=== PATIENT | female | born 1990 | race Caucasian/White ===

== ENCOUNTER 2017-08-14 08:07 | Emergency (ER) | payer OTHER ==
[~2017-08-14] VITALS: Ht 165.1 cm; Wt 34.3 kg
[2017-08-14 09:13] LABS: HEMATOCRIT 43.3 % (36.0-46.0); MCH 31.6 PG (29.0-34.0); MCHC 34.4 G/DL (30.0-36.0); MCV 91.7 FL (83-99); MEAN PLAT.VOLUME 10.9 uM^3 (9.5-12.4); PLATELET COUNT 267 K/uL (156-360); RBC DIS.WIDTH-CV 12.8 % (11.8-14.6); RBC DIS.WIDTH-SD 42.9 % (39-53); RED BLOOD COUNT 4.72 M/uL (3.80-5.20); WHITE BLOOD COUNT 13.2 K/uL (4.1-10.2)
[2017-08-14 09:26] LABS: CHLORIDE 108 mEq/L (99-109); POTASSIUM 4.1 mEq/L (3.7-5.4); SODIUM 145 mEq/L (136-147)
[2017-08-14 09:27] LABS: GLUCOSE 83 mg/dL (70-99)
[2017-08-14 09:29] LABS: ANION GAP 9 MEQ/L (2-14)
[2017-08-14 09:31] LABS: GFR ESTIMATE (CALCULATED) > 59 mL/min/; SERUM ETHYL ALCOHOL 217 mg/dL
[2017-08-14 09:32] LABS: UREA NITROGEN (BUN) 16 mg/dL (9-23)
[2017-08-14 09:41] LABS: QUANTITATIVE HCG < 4.0 MIU/ML
[2017-08-14 16:02] VITALS: BP 106/71
== END 2017-08-14 16:05 | disposition home or self-care (01) ==
LOC: TRA 08:07 → EME 08:07 → TRA 16:05
PROVIDERS: Nurse Practitioner Family
DX: S00.81XA Abrasion of other part of head, initial encounter (principal); R10.817 Generalized abdominal tenderness; M25.561 Pain in right knee; F10.129 Alcohol abuse with intoxication, unspecified; Y90.7 Blood alcohol level of 200-239 mg/100 ml; V48.0XXA Car driver injured in noncollision transport accident in nontraffic accident, initial encounter; R07.81 Pleurodynia; M79.604 Pain in right leg; F17.200 Nicotine dependence, unspecified, uncomplicated; Z88.0 Allergy status to penicillin; Z88.1 Allergy status to other antibiotic agents
CPT/HCPCS: 70450; 71260; 72125; 73552; 74177; 80048; 84702; 85027; 99281; 99285; G0480; J7030